=== PATIENT | male | born 1980 | race Caucasian/White ===

== ENCOUNTER 2018-01-22 18:56 | Observation (INO) | payer OTHER ==
[2018-01-22 18:57] VITALS: PULSE 101
[2018-01-22 19:03] VITALS: BMI 17.4
--- NOTE | 2018-01-22 19:41 | ED PDOC ---
Arrival/HPI - General Chief Complaint: Chest Pain Time Seen by Provider: 01/22/18 19:12 Historian: Patient - History of Present Illness Narrative History of Present Illness (Text): 01/22/18 19:22 37 year old male, with past medical history of HIV and anemia, presents to the Emergency department complaining of a sudden onset of chest pain since this evening. Patient informs a pressure sensation to his chest with mild radiation to his left arm associated with parasthesia to the arm. Patient additionally informs a transient episode of shortness of breath and palpitations, which resolved spontaneously. Currently, patient denies any chest discomfort or shortness of breath but does admit to vague paresthesia to the left arm. Patient denies any other associated somatic complaints. Patient denies any fevers, chills, headache, dizziness cough, abdominal pain, nausea, vomiting, diarrhea, back pain, neck pain, or any other complaints. Time/Duration: 1-3 hours Symptom Onset: Gradual Symptom Course: Unchanged Quality: Pressure Activities at Onset: Light Context: Home Past Medical History - Provider Review Nursing Documentation Reviewed: Yes - Infectious Disease Hx of Infectious Diseases: None - Tetanus Immunization Tetanus Immunization: Unknown - Past Medical History Past Medical History: No Previous - Cardiac Hx Cardiac Disorders: No - Pulmonary Hx Respiratory Disorders: No - Hematological/Oncological Hx Blood Transfusions: Yes - Musculoskeletal/Rheumatological Hx Falls: No - Psychiatric Hx Psychophysiologic Disorder: No Hx Substance Use: No - Past Surgical History Past Surgical History: No Previous - Anesthesia Hx Anesthesia Reactions: No Hx Malignant Hyperthermia: No - Suicidal Assessment Feels Threatened In Home Enviroment: No Family/Social History - Physician Review Nursing Documentation Reviewed: Yes Family/Social History: Unknown Family HX Smoking Status: Never Smoked Hx Alcohol Use: Yes Hx Substance Use: No Hx Substance Use Treatment: No Allergies/Home Meds Allergies/Adverse Reactions: Allergies avocado Allergy (Verified 01/22/18 19:18) ANAPHYLAXIS Home Medications: Home Meds Medication Instructions Recorded Confirmed Azithromycin [Zithromax] 600 mg PO QWK 01/22/18 01/22/18 Darunavir [Prezista] 800 mg PO DAILY 01/22/18 01/22/18 Emtricitabine/Tenofovir (Tdf) 1 each PO DAILY 01/22/18 01/22/18 [Truvada 200 mg-300 mg Tablet] Ritonavir 100 mg PO DAILY 01/22/18 01/22/18 Review of Systems - Physician Review All systems were reviewed & negative as marked: Yes - Review of Systems Constitutional: absent: Fevers Respiratory: absent: SOB, Cough Cardiovascular: Chest Pain Gastrointestinal: absent: Abdominal Pain, Diarrhea, Nausea, Vomiting Genitourinary Male: absent: Dysuria, Urinary Output Changes Musculoskeletal: absent: Back Pain, Neck Pain Neurological: absent: Headache, Dizziness Physical Exam Vital Signs Reviewed: Yes Vital Signs Pulse Pulse Resp BP Pulse Ox 01/22/18 19:10 107 H 20 122/88 100 01/22/18 19:08 94 H 01/22/18 19:03 111 H 20 122/88 98 Blood Pressure: Normal Pulse: Tachycardic Respiratory Rate: Normal Appearance: Positive for: Well-Appearing, Non-Toxic, Comfortable Pain Distress: None Mental Status: Positive for: Alert and Oriented X 3 - Systems Exam Head: Present: Atraumatic, Normocephalic Pupils: Present: PERRL Extroacular Muscles: Present: EOMI Conjunctiva: Present: Normal Respiratory/Chest: Present: Clear to Auscultation, Good Air Exchange. No: Respiratory Distress, Accessory Muscle Use Cardiovascular: Present: Regular Rate and Rhythm, Normal S1, S2. No: Murmurs Abdomen: No: Tenderness, Distention, Peritoneal Signs Upper Extremity: Present: Normal Inspection. No: Cyanosis, Edema Lower Extremity: Present: Normal Inspection. No: Edema, CALF TENDERNESS Neurological: Present: GCS=15, CN II-XII Intact, Speech Normal Skin: Present: Warm, Dry, Normal Color. No: Rashes Psychiatric: Present: Alert, Oriented x 3, Normal Insight, Normal Concentration Medical Decision Making ED Course and Treatment: 01/22/18 19:22 Impression: 37 year old male presents to the Emergency department complaining of chest discomfort since this evening. Differential Diagnosis included but are not limited to: Chest pain r/o ACS Plan: -- Labs -- EKG -- Chest X-ray -- Reassess and disposition Prior Visits: Notes and results from previous visits were reviewed. Progress Notes: EKG: Ordered, reviewed, and independently interpreted the EKG. Rate : 93 BPM Rhythm : NSR Interpretation : Non-specific t-wave changes. 01/22/18 21:20 Chest X-ray reviewed, shows no acute processes. 01/22/18 21:30 Case discussed with medical transcription salon coordinator, who is aware and agrees with plan. 01/22/18 21:[address] Saul, who is aware and agrees with plan. Accepts pt in to hospitalist service. Pt will go to remote telemetry observation for chest pain. - Lab Interpretations I have reviewed the lab results: Yes - RAD Interpretation Radiology Orders: 01/22/18 19:23 CHEST PORTABLE [RAD] Stat Print Inspector: ED Physician - EKG Interpretation Interpreted by ED Physician: Yes Type: 12 lead EKG - Scribe Statement The provider has reviewed the documentation as recorded by the Scribe Jose Garza. All medical record entries made by the Scribe were at my direction and personally dictated by me. I have reviewed the chart and agree that the record accurately reflects my personal performance of the history, physical exam, medical decision making, and the department course for this patient. I have also personally directed, reviewed, and agree with the discharge instructions and disposition. Disposition/Present on Arrival - Present on Arrival Any Indicators Present on Arrival: No History of DVT/PE: No History of Uncontrolled Diabetes: No Urinary Catheter: No History of Decub. Ulcer: No History Surgical Site Infection Following: None - Disposition Have Diagnosis and Disposition been Completed?: Yes Diagnosis: Chest pain Disposition: HOSPITALIZED Disposition Time: 21:28 Patient Problems: Current Active Problems Problem Status Onset Chest pain Acute Condition: STABLE
[2018-01-22 19:49] LABS: HEMOGLOBIN 10.5 g/dL (14.0-18.0); MEAN CELL VOLUME 88.7 fl (80.0-105.0); MEAN CORPUSCULAR HEMOGLOBIN 28.8 pg (25.0-35.0); MEAN CORPUSCULAR HGB CONC 32.5 g/dl (31.0-37.0); MEAN PLATELET VOLUME 9.4 fl (7.0-11.0); RBC 3.64 10^6/uL (3.5-6.1); RED CELL DISTRIBUTION WIDTH 16.1 % (11.5-14.5); WHITE BLOOD COUNT 4.5 10^3/uL (4.5-11.0)
[2018-01-22 20:05] LABS: ALB/GLOB RATIO 1.2 (1.1-1.8); ALBUMIN 4.2 g/dL (3.0-4.8); ALT/SGPT 28 U/L (7-56); AST/SGOT 25 U/L (17-59); BLOOD UREA NITROGEN 9 mg/dL (7-21); CALCIUM 9.9 mg/dL (8.4-10.5); GFR NON-AFRICAN AMERICAN > 60
[2018-01-22 20:21] LABS: TROPONIN I < 0.01 ng/mL
[2018-01-22 20:21] LABS: D DIMER < 200 ng/mlDDU (0-243); PROTHROMBIN TIME 12.6 SECONDS (9.4-12.5)
--- NOTE | 2018-01-22 21:33 | CP.PCM.HP ---
<Medardo Rios - Last Filed: 01/23/18 03:52> History of Present Illness - History of Present Illness History of Present Illness: Medardo Rios, PGY1 Hospital H&P This is a 37 year old male with PMH of HIV with CD4 of 120 last month, history of pulmonary mycobacterium TB and history of anemia presenting to the hospital for one day history of chest pressure, SOB and left arm numbness. Patient states he was walking up the stairs at work at 3pm when symptoms started suddenly. He subsequently took a nap for 30 minutes but symptoms persisted after waking and patient came to the ED. He denies any chest pain but admits to chest pressure located on the left side of the chest wall as well as palpitations. He denies any exacerbating or relieving factors and did not take anything for his sympt oms. He has never had these symptoms before. He denies any previous cardiac stress test. He recently resumed his HIV medications after previously not taking medications for 8 months due to loss of insurance. He states he has lost 10 pounds over the last 4 months due to decreased appetite. He currently denies CP, fevers, headaches, nausea, vomiting, chills, diarrhea, constipation, abdominal pain, back pain, urinary complaints, swelling, recent travel, sickness, trauma, and lifestyle changes. 12 point ROS noted here, otherwise unremarkable. PMD: Dr. Membreno at [facility] PMH: HIV with CD4 of 120 last month, history of pulmonary mycobacterium TB and history of anemia SH: denies smoking, drinking, drug use Sx: denies All: avocado - SOB FH: HTN, DM Meds: azithromax, ritonavir, truvada, prezista [place] [facility] [place] Present on Admission - Present on Admission Any Indicators Present on Admission: No Past Patient History - Infectious Disease Hx of Infectious Diseases: None - Tetanus Immunizations Tetanus Immunization: Unknown - Past Social History Smoking Status: Never Smoked - CARDIAC Hx Cardiac Disorders: No - PULMONARY Hx Respiratory Disorders: No - HEMATOLOGICAL/ONCOLOGICAL Hx Blood Transfusions: Yes - MUSCULOSKELETAL/RHEUMATOLOGICAL Hx Falls: No - PSYCHIATRIC Hx Psychophysiologic Disorder: No Hx Substance Use: No - SURGICAL HISTORY Hx Surgeries: No - ANESTHESIA Hx Anesthesia Reactions: No Hx Malignant Hyperthermia: No Meds Allergies/Adverse Reactions: Allergies Allergy/AdvReac Type Severity Reaction Status Date / Time avocado Allergy ANAPHYLAXIS Verified 01/22/18 19:18 Physical Exam - Constitutional Appears: No Acute Distress - Head Exam Head Exam: ATRAUMATIC, NORMAL INSPECTION - Eye Exam Eye Exam: EOMI Pupil Exam: PERRL - ENT Exam ENT Exam: Mucous Membranes Moist - Respiratory Exam Respiratory Exam: Clear to Auscultation Bilateral, NORMAL BREATHING PATTERN. absent: Accessory Muscle Use, Wheezes, Respiratory Distress - Cardiovascular Exam Cardiovascular Exam: REGULAR RHYTHM, +S1, +S2 Additional comments: no chest wall tenderness - GI/Abdominal Exam GI & Abdominal Exam: Normal Bowel Sounds, Soft. absent: Diminished Bowel Sounds, Firm, Guarding, Tenderness - Extremities Exam Extremities exam: Positive for: normal inspection. Negative for: calf tenderness, pedal pulses present - Back Exam Back exam: NORMAL INSPECTION. absent: CVA tenderness (L), CVA tenderness (R) - Neurological Exam Neurological exam: Alert, Oriented x3 - Skin Skin Exam: Normal Color, Warm Results - Vital Signs Recent Vital Signs: Last Vital Signs Temp Pulse 88 01/22/18 21:31 Resp 21 01/22/18 21:31 BP 117/73 01/22/18 21:31 Pulse Ox 100 01/22/18 21:31 - Labs Result Diagrams: 01/22/18 19:40 01/22/18 19:23 Labs: Laboratory Results - last 24 hr 01/22/18 01/22/18 01/22/18 19:23 19:40 19:40 WBC 4.5 RBC 3.64 Hgb 10.5 L Hct 32.3 L MCV 88.7 MCH 28.8 MCHC 32.5 RDW 16.1 H Plt Count 226 MPV 9.4 PT 12.6 H INR 1.10 APTT 32.0 D-Dimer, Quantitative < 200 Sodium 138 Potassium 4.3 Chloride 105 Carbon Dioxide 26 Anion Gap 12 BUN 9 Creatinine 0.8 Est GFR ( Amer) > 60 Est GFR (Non-Af Amer) > 60 Random Glucose 96 Calcium 9.9 Total Bilirubin 1.1 AST 25 ALT 28 Alkaline Phosphatase 71 Lactate Dehydrogenase 442 Total Creatine Kinase 105 Troponin I < 0.01 Total Protein 7.7 Albumin 4.2 Globulin 3.5 Albumin/Globulin Ratio 1.2 Assessment & Plan - Assessment and Plan (Free Text) Assessment: This is a 37 year old male with PMH of HIV with CD4 of 120 last month, history of pulmonary mycobacterium TB and history of anemia presenting to the hospital for one day history of chest pressure, SOB and left arm numbness. Plan: Chest pressure, palpitations -initial EKG showed NSR @ 92bpm, no ST/T wave elevations/depressions -initial troponin <0.01 -repreat AM EKG, serial troponins pending -d-dimer <200 -CXR shows no acute disease, f/u official read -Echo pending -lipid panel, thyroid panel, A1c pending -daily ASA 81 -Cardio on consult, Dr. Berrios Hx of HIV -CD4 count last month was 120 per patient at [facility] -continue home HIV medications -patient states he follows closely with his PMD Hx of anemia -Hg is currently above baseline, normocytic, RDW appropriately elevated -likely 2/2 HIV status -symptoms unlikely related to anemia, will monitor PPX with pepcid and SCD Regular diet Patient seen and case discussed with attending, Dr. Saul <Rambo Saul - Last Filed: 01/23/18 05:48> Results - Vital Signs Recent Vital Signs: Last Vital Signs Temp Pulse 73 01/23/18 05:08 Resp 18 01/23/18 00:10 BP 125/83 01/22/18 22:23 Pulse Ox 100 01/22/18 22:23 - Labs Result Diagrams: 01/22/18 19:40 01/22/18 19:23 Labs: Laboratory Results - last 24 hr 01/22/18 01/22/18 01/22/18 19:23 19:40 19:40 WBC 4.5 RBC 3.64 Hgb 10.5 L Hct 32.3 L MCV 88.7 MCH 28.8 MCHC 32.5 RDW 16.1 H Plt Count 226 MPV 9.4 PT 12.6 H INR 1.10 APTT 32.0 D-Dimer, Quantitative < 200 Sodium 138 Potassium 4.3 Chloride 105 Carbon Dioxide 26 Anion Gap 12 BUN 9 Creatinine 0.8 Est GFR ( Amer) > 60 Est GFR (Non-Af Amer) > 60 Random Glucose 96 Calcium 9.9 Total Bilirubin 1.1 AST 25 ALT 28 Alkaline Phosphatase 71 Lactate Dehydrogenase 442 Total Creatine Kinase 105 Troponin I < 0.01 Total Protein 7.7 Albumin 4.2 Globulin 3.5 Albumin/Globulin Ratio 1.2 Attending/Attestation - Attestation I have personally seen and examined this patient.: Yes I have fully participated in the care of the patient.: Yes I have reviewed all pertinent clinical information: Yes Notes (Text): 01/23/18 05:48 Patient was seen when he was in bed # 7 in the ER. Agree with history,physical examination, assessment and plan.
[2018-01-23 06:53] LABS: BASO # 0.01 K/mm3 (0.0-2.0); BASO % 0.3 % (0.0-3.0); EOS # 0.6 (0.0-0.7); EOS % 15.3 % (1.5-5.0); GRAN # 2.01 (1.4-6.5); GRAN % 51.2 % (50.0-68.0); HEMOGLOBIN 10.3 g/dL (14.0-18.0); LYMPH # 0.9 (1.2-3.4); LYMPH % 22.7 % (22.0-35.0); MEAN CELL VOLUME 89.8 fl (80.0-105.0); MEAN CORPUSCULAR HEMOGLOBIN 28.3 pg (25.0-35.0); MEAN CORPUSCULAR HGB CONC 31.5 g/dl (31.0-37.0); MONO # 0.4 (0.1-0.6); MONO % 10.5 % (1.0-6.0); RBC 3.64 10^6/uL (3.5-6.1); RED CELL DISTRIBUTION WIDTH 16.3 % (11.5-14.5); WHITE BLOOD COUNT 3.9 10^3/uL (4.5-11.0)
[2018-01-23 06:57] LABS: TROPONIN I < 0.01 ng/mL
[2018-01-23 07:07] LABS: BLOOD UREA NITROGEN 11 mg/dL (7-21)
[2018-01-23 07:08] LABS: ALB/GLOB RATIO 1.1 (1.1-1.8); ALT/SGPT 26 U/L (7-56); AST/SGOT 23 U/L (17-59); CALCIUM 9.1 mg/dL (8.4-10.5); GFR NON-AFRICAN AMERICAN > 60; HDL CHOLESTEROL 25 mg/dL (29-60)
[2018-01-23 07:35] LABS: FREE T4 1.18 ng/dL (0.78-2.19); LDL CHOLESTEROL 68 mg/dL (0-129)
--- NOTE | 2018-01-23 08:19 | RAD ---
Date of service: 01/22/2018 HISTORY: chest pain COMPARISON: 09/29/2014 FINDINGS: LUNGS: No active pulmonary disease. PLEURA: No significant pleural effusion identified, no pneumothorax apparent. CARDIOVASCULAR: No aortic atherosclerotic calcification present. Normal cardiac size. No pulmonary vascular congestion. OSSEOUS STRUCTURES: No significant abnormalities. VISUALIZED UPPER ABDOMEN: Normal. OTHER FINDINGS: None. IMPRESSION: No active disease.
[2018-01-23] MEDS ORDERED: DARUNAVIR 800 MG PO SCH (10:00)
[2018-01-23] MEDS: Emtricitabine-Tenofovir 200 mg-300 mg Tab PO SCH (11:12)
[2018-01-23] MEDS: DARUNAVIR 800 MG PO SCH (11:14)
--- NOTE | 2018-01-23 11:41 | CARD ---
APPROVED REPORT Date of service: 01/23/2018 EXAM: Two-dimensional and M-mode echocardiogram with Doppler and color Doppler. INDICATION Chest Pain 2D DIMENSIONS Left Atrium (2D)3.3 (1.6-4.0cm)IVSd1.1 (0.7-1.1cm) LVDd4.6 (3.9-5.9cm)PWd1.1 (0.7-1.1cm) LVDs3.6 (2.5-4.0cm)FS (%) 20.2 % LVEF (%)41.5 (>50%) M-Mode DIMENSIONS Aortic Root2.90 (2.2-3.7cm)Aortic Cusp Exc.2.10 (1.5-2.0cm) Aortic Valve AoV Peak Tfoudijd063.0cm/Betsy Peak GR.5mmHg Mitral Valve MV E Bhaaolws66.4cm/sMV A Soleblgd98.4cm/sE/A ratio0.8 TDI E/Lateral E'0.0E/Medial E'0.0 Tricuspid Valve TR Peak [id number]/sRAP [id number] Peak Gr.12mmHg [id number] LEFT VENTRICLE The left ventricle is normal size. There is normal left ventricular wall thickness. The systolic function is mildly impaired.EF-45-50% There is mild hypokinesis in the apical anterior wall. Transmitral Doppler flow pattern is Grade III-reversible restrictive diastolic dysfunction. No left ventricle thrombus noted on this study. There is no ventricular septal defect visualized. There is no left ventricular aneurysm. There is no mass noted in the left ventricle. RIGHT VENTRICLE The right ventricle is normal size. There is normal right ventricular wall thickness. The right ventricular systolic function is normal. ATRIA The left atrium size is normal. The right atrium size is normal. The interatrial septum is intact with no evidence for an atrial septal defect. AORTIC VALVE The aortic valve is thickened but opens well. There is trace aortic regurgitation. There is no aortic valvular stenosis. There is no aortic valvular vegetation. MITRAL VALVE The mitral valve is thickened but opens well. Mitral regurgitation is mild. There is no mitral valve stenosis. There is no evidence of mitral valve prolapse. TRICUSPID VALVE The tricuspid valve leaflets are thickened , but open well. There is trace tricuspid regurgitation.RVSP-22 mmof Hg. There is no tricuspid valve stenosis. There is no tricuspid valve prolapse or vegetation. PULMONIC VALVE The pulmonary valve is normal in structure. There is trace to mild pulmonic valvular regurgitation. There is no pulmonic valvular stenosis. GREAT VESSELS The aortic root is normal in size. The ascending aorta is normal in size. The pulmonary artery is normal. The IVC is normal in size and collapses >50% with inspiration. PERICARDIAL EFFUSION There is no pleural effusion. There is no pericardial effusion. <Conclusion> Normal chamber size. EF-45-50% There is trace aortic regurgitation. Mitral regurgitation is mild. There is trace tricuspid regurgitation.RVSP-22 mmof Hg. There is trace to mild pulmonic valvular regurgitation. The IVC is normal in size and collapses >50% with inspiration. There is no pericardial effusion. no vegetation or thrombus noted.
--- NOTE | 2018-01-23 18:49 | CARD ---
APPROVED REPORT Date of service: 01/23/2018 EKG Measurement Heart [id number] <Conclusion> Normal sinus rhythm Normal ECG
--- NOTE | 2018-01-23 18:52 | CARD ---
APPROVED REPORT Date of service: 01/22/2018 EKG Measurement Heart [id number] <Conclusion> Normal sinus rhythm Minimal voltage criteria for LVH, may be normal variant Nonspecific T wave abnormality Abnormal ECG
--- NOTE | 2018-01-23 22:02 | CON ---
DATE: 01/23/2018 REASON FOR CONSULTATION: Chest pain. HISTORY OF PRESENT ILLNESS: The patient is 37 years old [place] male, who presented because of chest pain as well as shortness of breath. The patient reports chest tightness with left arm numbness. The patient is unaware of any prior history of heart attack in the past. PAST MEDICAL HISTORY: The patient is HIV positive. SOCIAL HISTORY: Nonsmoker, nondrinker. He is currently unemployed. MEDICATIONS: Aspirin 81 mg once a day, Norvasc 100 mg daily, Truvada one tablet daily. PHYSICAL EXAMINATION: GENERAL: The patient is a middle-aged male, who does not appear to be in acute distress. VITAL SIGNS: Blood pressure 104/67, heart rate 77, temperature 98, respirations 18. HEENT: Pale conjunctivae. CHEST: Clear. HEART: S1, S2 regular. EXTREMITIES: No edema. LABORATORY DATA: SMA-7 is within normal limit. Two sets of troponins are negative. TSH level is within normal limit. Hemoglobin and hematocrit are 10.3 and 32.7, white count 3.9, and platelet count 125,000. EKG revealed normal sinus rhythm. Echocardiographic study revealed ejection fraction in the range of 45% to 50%. ASSESSMENT: 1. Chest pain, myocardial infarction was ruled out. 2. Mildly depressed ejection fraction. 3. Human immunodeficiency virus positive. RECOMMENDATIONS: Continue current aspirin at 81 mg once a day, start Coreg 3.125 mg twice a day, and Cozaar 12.5 mg once a day. Conservative medical approach recommended. Thierno Berrios MD
[2018-01-24 03:13] VITALS: RESP 20; O2SAT 96
[2018-01-24 07:04] LABS: BASO # 0.02 K/mm3 (0.0-2.0); BASO % 0.4 % (0.0-3.0); EOS # 0.7 (0.0-0.7); EOS % 14.8 % (1.5-5.0); GRAN # 2.34 (1.4-6.5); GRAN % 50.9 % (50.0-68.0); HEMOGLOBIN 10.3 g/dL (14.0-18.0); LYMPH # 1.2 (1.2-3.4); LYMPH % 25.4 % (22.0-35.0); MEAN CELL VOLUME 90.6 fl (80.0-105.0); MEAN CORPUSCULAR HEMOGLOBIN 28.4 pg (25.0-35.0); MEAN CORPUSCULAR HGB CONC 31.3 g/dl (31.0-37.0); MEAN PLATELET VOLUME 9.3 fl (7.0-11.0); MONO # 0.4 (0.1-0.6); MONO % 8.5 % (1.0-6.0); RBC 3.63 10^6/uL (3.5-6.1); RED CELL DISTRIBUTION WIDTH 16.3 % (11.5-14.5); WHITE BLOOD COUNT 4.6 10^3/uL (4.5-11.0)
[2018-01-24 07:53] LABS: ALB/GLOB RATIO 1.2 (1.1-1.8); ALBUMIN 4.1 g/dL (3.0-4.8); ALT/SGPT 20 U/L (7-56); AST/SGOT 21 U/L (17-59); BLOOD UREA NITROGEN 13 mg/dL (7-21); GFR NON-AFRICAN AMERICAN > 60
[2018-01-24] MEDS: Emtricitabine-Tenofovir 200 mg-300 mg Tab PO SCH (11:22)
[2018-01-24] MEDS: DARUNAVIR 800 MG PO SCH (11:24)
[2018-01-24 12:26] VITALS: PULSE 107
[2018-01-24 13:02] VITALS: BP 99/63; TEMP 98.1
--- NOTE | 2018-01-24 14:26 | PN ---
DATE: 01/24/2018 SUBJECTIVE: The patient denies chest pain. He underwent treadmill stress test with Myoview imaging. The patient achieved 100% of predicted maximum heart rate without chest pain or EKG changes. Myoview imaging is still pending. PHYSICAL EXAMINATION: VITAL SIGNS: Blood pressure 115/77, heart rate 67, temperature 98.2, respirations 20. HEENT: Pale conjunctivae. CHEST: Clear. HEART: S1, S2, regular. EXTREMITIES: No edema. ASSESSMENT: 1. Chest pain, myocardial infarction ruled out. 2. Human immunodeficiency virus positive. 3. History of pulmonary TB 4. Mild anemia. 5. Mildly depressed ejection fraction. RECOMMENDATIONS: The patient can be maintained on baby aspirin, Coreg, Cozaar, and antiviral therapy. Case was discussed with the medical transcription editor. Myoview images can be followed as an outpatient. Thierno Berrios MD [id number]
--- NOTE | 2018-01-24 21:39 | CARD ---
APPROVED REPORT Date of service: 01/24/2018 Protocol: MARY Test Type: Sestamibi Stress Test Attending Physician: Dr. Sloane Patel Referring Physician: Dr. BERTIN WINTER Test Indications: Chest Pain Height:6 ft 1 in Weight:132lbs Medications: ASPIRIN,COREG,TRUVADA PEPCID,COZAAR,RITONAIR Medical History: 37 YEAR OLD MALE WITH HISTORY OF ANEMIA,BLOOD TRANSFUSIONS,HIV Target HR: 182 bpm Resting ECG: RSR. High Voltage. Can Be A Normal Variant. Resting Heart Rate: 121 bpm Resting Blood Pressure: 108/60mmHg Submaximum (85%): 155 bpm POST EXERCISE Reason for Termination: Fatigue Target HR: Yes Max HR: 184 bpm 101% of Maximum Predicted HR: 182 bpm Exercise duration: 08:38 min:sec, 3 Stage Exercise capacity: 10.4METs Max Blood Pressure: 142/70mmHg Blood Pressure response to exercise: normal resting BP - appropriate response Heart Rate response to exercise: appropriate Chest Pain: No, none Angina index: 0 Arrhythmia: No, none ST Change: No, none Deviation: 0 mm INTERPRETATION Stress EKG Conclusion: MYOVIEW NUCLEAR STRESS TEST STOPPED AFTER 8 MINUTES AND 38 SECONDS OF MARY PROTOCOL DUE TO FATIGUE. PATIENT ACHIEVED 100% OF PREDICTED HEART RATE. NO CHEST PAIN. NO ST-T CHANGES. NUCLEAR SCAN REPORT TO FOLLOW. Signed by Sloane Patel Electronically Approved: 01/24/2018 09:28:46 EXAM: Myocardial Perfusion STRESS/REST Stress Test Type: Exercise Treadmill Imaging Protocol The imaging protocol used to acquire images was Stress Tc-99m/rest Tc-99m 1 day Rest Spect myocardial perfusion imaging was performed in supine position 45 minutes following the injection of 30.2 mCi of Tc-99 Myoview. At peak stress, the patient was injected intravenously with 10.8mCi of Tc-99 tetrofosmin after an exercise time of 8 minutes and 38 seconds. Gated Stress Spect was performed 70 minutes after intravenous Tc-99 Myoview injection. The images were gated to evaluate regional wall motion and calculate ventricular ejection fraction.Images were reconstructed using backfilter projection method in short horizontal and verticle long axis. Spect slices were generated. LV Perfusion The quality of the study is good. The left ventricle is mildly enlarged in size with thickened myocardium. The right ventricle is unremarkable. The lung uptake is within normal limits. The distribution of tracer reveals mildly to moderately and diffusely decreased perfusion in the inferior wall on the stress study. The remainder of the LV myocardium is unremarkable. The rest myocardial perfusion study shows no significant change. Wall Motion Wall motion study shows diffuse hypokinesis of the left ventricle and paradoxical septal wall motion. LVEF = 38%. Conclusion 1. Abnormal SPECT myocardial perfusion study. 2. Fixed, inferior defect is most likely due to diaphragmatic attenuation. 3. Moderate LV dysfunction with diffuse hypokinesis and paradoxical septum. 4. The above findings are suggestive of cardiomyopathy.
[2018-01-29] MEDS ORDERED: AZITHROMYCIN 600 MG PO SCH ×2 (10:00)
== END 2018-01-24 17:08 | disposition home or self-care (01) ==
LOC: ED 18:56 → ERH 21:26 → 2RNO 22:33
PROVIDERS: ADMIT Internal Medicine; ATTEND Internal Medicine
DX: R07.89 Other chest pain (principal); Z21 Asymptomatic human immunodeficiency virus [HIV] infection status; D64.9 Anemia, unspecified; Z86.11 Personal history of tuberculosis
CPT/HCPCS: 36415; 71045; 78452; 80053; 80061; 82550; 83036; 83615; 83735; 84100; 84439; 84443; 84484; 85025; 85027; 85378; 85610; 85730; 93005; 93017; 93306; 99285; A9502; G0378